=== PATIENT | male | born 1980 | race Caucasian/White ===

== ENCOUNTER 2022-11-08 09:46 | Outpatient (CLI) | payer OTHER ==
--- NOTE | 2022-11-08 11:01 | SLEEP CARE CONSULTATION ---
Information from patient questionnaire entered by Franchesca Beach. I have reviewed and concur with the information entered by Franchesca Beach. This document represents the service I personally performed and the decisions made by me, Paula George ARNP. History of Present Illness Service Date and Time: 11/08/2022 0946 Reason for Visit: New patient, Previously diagnosed sleep apnea (this appointment was made to fix the presssure issues on my cpap machine. Feels like my ears want to explode.) Chief Complaint: reports: Insomnia, Unrefreshed sleep, Snoring, Observed pauses in breathing, Fatigue, Frequent awakenings at night, Other (update supplies) Date of Onset: few years Usual bedtime: 10pm Time it takes to fall asleep: sometimes quick, other long time Snores at night: Yes Observed to quit breathing while asleep: Yes Sleeps alone due to snoring: Yes Number of times waking at night: varies Reasons for waking at night: reports: Choking, Snoring, Gasping for air, Other (noise) Toss, Turn, or Twitch while sleeping: Yes Recalls having dreams: No Usually gets out of bed at: 530am Feels refreshed in the morning: No Morning headache: Yes Sleepy or fatigued during the day: Yes Ever fallen asleep while driving: No Takes day naps: No (sometimes) Dreams during day naps: No Prior sleep studies: Yes Year and Where: unknown, have been diagnosed with sleep apnea, have machine need adjustment Additional HPI information: CLARE NICOLE was previously diagnosed to have unknown, AHI unknown, sleep apnea-hypopnea syndrome and comes in today to establish care for CPAP therapy. He has been having issues with ear pressure that is so uncomfortable that he is not using the CPAP very much. - Parasomnia Symptoms Ever been unable to move upon waking from sleep: No Walks in sleep: No Talks in sleep: No Ever acted out dreams in sleep: No Ever felt weak in the knees when startled or emotional: No Bothered by creepy, crawly, restless sensations in legs: No Problems with memory or concentration: Yes CPAP Compliance Data - Data Reviewed with Patient Average duration of nightly device use: 2 minutes Compliance rate %: 0 ( days used) Current pressure setting (cmH2O): 5-15 Average residual AHI: 0 Compliance data discussion: He was set up with an ResMed Airsense 10 that was set up 12/22/2018. He has been getting his supplies at [facility] in [place]. He has not got supplies for a long time. He has used the [employer] full face but he did not like this mask, was uncomfortable. He was given an ResMed Airtouch F20 mask but has not got to use this much. He states the machine fell from a [employer] bunk and since then the pressure has been so high that he feels that his ears will "explode". He is unable to tolerate wearing the CPAP because of the pain. Subjective Missed days of use due to: reports: mask issues, other (painful ear pressure when using CPAP) Patient concerns: reports: mask discomfort, dry mouth, nose, throat (ear pain with using CPAP), other. denies: aerophagia, air blowing in eyes, mask leak noise, condensation in mask/hose, nasal congestion, epistaxis Observed to snore while using device: No Current pressure setting perceived as: too high On therapy, patient: reports: sleeping better, awakening more refreshed, being more awake and alert during the day, more rested overall. 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 Patient is and lives in [place]. Have you smoked in the past 12 months: No Alcohol use: Yes Alcohol amount and frequency: occasionally/seldom Caffeine use: Yes Caffeine amount and frequency: 1 soda/day Family History Family history of sleep disordered breathing: Yes Family Hx Sleep Apnea: Other: Snoring ( & daughter occasionally ) Allergies and Home Medications Known drug allergies: Yes (penicillin) Drug allergies reviewed: Yes Home medication list reviewed: Yes Allergy and home medication list: Medications: Spironolactone Pantoprazole Losartan Fexofenadine Review of Systems Cardiovascular: reports: high blood pressure Gastrointestinal: reports: heartburn, diarrhea Neurological: denies: headaches Psychiatric: denies: anxiety, depression Ear/Nose/Throat: reports: dry mouth/throat. denies: sinus problems, tonsillectomy Endocrine: denies: thyroid disease Musculoskeletal: reports: joint pain, neck pain, back pain, muscle pain or cramping Physical Exam Vital signs obtained and entered by: Rhona BEACH MA Blood Pressure: 118/70 (left arm ) Cuff size: long Heart Rate: 102 O2 Saturation: 96 Height: 5 ft 10 in Weight: 250 lb Body Mass Index: 35.9 BMI Classification: Obese Neck circumference: 21 (inches ) Heart: regular rate and rhythm Lungs: clear bilaterally Impression and Plan 1. Obstructive Sleep Apnea-Hypopnea Syndrome, unknown, with poor treatment compliance and unknown apnea control. On CPAP therapy, the patient has better sleep quality and is more rested overall. Patient has been having problem with e ars feeling like they will "explode" when using his CPAP for the last couple years. He states that the machine was working fine and then dropped from a [employer] bunk, worked okay for a while and then started feeling like the pressure was way too high. He has not been able to wear the CPAP for more than 2 minutes in last few months. He would like to transfer to a local DME, I will add this to his orders. I will need a copy of his last sleep study before I can write orders for supplies and transfer. We may need to service machine if it is malfunctioning. I will have him follow up in 1-2 months to see how he is doing. Patient's apnea severity and rationale for treatment to reduce apnea, improve sleep quality and reduce cardiovascular and cerebrovascular events was reviewed. I also reviewed the benefit of consistent device use of CPAP for hypertension and gastric reflux. * Change auto CPAP pressure to 4-10 cmH2O * Obtain copy of sleep study * Transfer DME * Update supplies * Notify me if snoring with mask or feeling that the pressure is too much or too little * Attempt to lose weight * Call this office if any problems using CPAP * Return for follow up in 1-2 months, or sooner if concerns arise Counseling Topics: Spare mask, Weight loss health impact Visit Type: In Office Time Spent with Patient (minutes): 39 Provider Statement: I spent 100% of the Face to Face Visit with the patient with greater than 50% spent counseling the patient and coordination of care.
[2022-11-08 11:14] VITALS: BP 118/70
== END 2022-11-08 09:47 | disposition home or self-care (01) ==
LOC: SC 09:46
PROVIDERS: ATTEND Nurse Practitioner Family
DX: G47.33 Obstructive sleep apnea (adult) (pediatric) (principal); E66.9 Obesity, unspecified; Z68.35 Body mass index [BMI] 35.0-35.9, adult
CPT/HCPCS: 99203; 99212